=== PATIENT | female | born 1990 | race Caucasian/White ===

== ENCOUNTER 2017-08-04 16:13 | Emergency (ER) | payer OTHER, SELFPAY ==
[2017-08-04 16:40] LABS: BHCG - Serum POSITIVE (NEGATIVE); Pregs Control Background? CLEAR/WHITE (CLR/WHITE); Pregs Control Bar Appear? YES (CONTROL BAR)
[2017-08-04 16:52] LABS: Bilirubin Negative (Negative); Blood, Urine Negative (Negative); Clarity CLEAR (Clear); Glucose, Urine (Dipstick) Negative (Negative); Leukocyte Negative (Negative); Nitrite Negative (Negative); Protein, Urine (Dipstick) Negative (Neg-Trace); Specific Gravity, Urine 1.012 (1.002-1.036); pH, Urine 6.5 (5.0-9.0)
[2017-08-04 16:54] LABS: Pregnancy Test - Urine (BHCG) POSITIVE (Negative); Pregu Control Background? CLEAR/WHITE (CLR/WHITE); Pregu Control Bar Appear? YES (CONTROL BAR); Specific Gravity 1.012 (1.002-1.036)
[2017-08-04] MEDS ORDERED: Acetaminophen 500 MG TAB ONE (17:43)
[2017-08-04 18:10] LABS: #Eosinphils 0.1 thou/uL (0.0-0.7); #Lymphocytes 2.6 thou/uL (1.20-3.40); #Monocytes 0.6 thou/uL (0.11-0.59); #Neutrophils 4.6 thou/uL (1.40-6.50); %Basophils 0.4 % (0.0-1.0); %Eosinophils 1.6 % (0.0-10.0); %Monocytes 7.9 % (0.0-10.0); %Neutrophils 58.2 % (42.0-75.0); Hemoglobin 14.5 g/dL (12.0-16.0); Mean Corpuscular HGB CONC 34.5 g/dL (32.0-36.0); Mean Corpuscular Hemoglobin 33.2 pg (27.0-31.0); Mean Corpuscular Volume 96.1 fl (81.0-99.0); Mean Platelet Volume 8.7 fL (7.4-10.4); Platelet Count 224 thou/uL (130-400); RBC Distribution Width 11.5 % (11.5-14.5); Red Blood Cell (RBC) Count 4.37 mill/uL (4.20-5.40)
--- NOTE | 2017-08-04 18:21 | CT ---
HEAD CT NONCONTRAST: INDICATIONS: Headache. COMPARISON: No prior comparison. FINDINGS: There is no evidence of ventriculomegaly, mass effect, midline shift, or acute intracranial hemorrhag e. The imaged paranasal sinuses are clear. IMPRESSION: No acute intracranial abnormalities. POS: [facility]
[2017-08-04 18:23] LABS: ALT (SGPT) 14 U/L (8-55); AST (SGOT) 12 U/L (5-34); Albumin 3.9 g/dL (3.5-5.0); Alkaline Phosphatase 49 U/L (40-150); Anion Gap 10 mmol/L (10-20); BUN (Urea Nitrogen) 6 mg/dL (7.0-18.7); Bilirubin, Total 0.4 mg/dL (0.2-1.2); Calc. Creatinine Clearance 0 mL/min (70-130); Calcium 8.7 mg/dL (7.8-10.44); Carbon Dioxide 24 mmol/L (22-29); Chloride 109 mmol/L (98-107); Estimated GFR-MDRD Greater than 90; Globulin 2.1 g/dL (2.4-3.5); Glucose 90 mg/dL (70-105); Potassium 3.5 mmol/L (3.5-5.1); Sodium 139 mmol/L (136-145)
--- NOTE | 2017-08-04 19:43 | ULT ---
TRANSVAGINAL AND TRANSABDOMINAL PELVIC ULTRASOUND WITH HARRISON SCALE AND DOPPLER COLOR FLOW IMAGING: INDICATIONS: Pelvic pain. FINDINGS: The left ovary is not visualized for comment. There is no evidence of an intrauterine gestation. Th e right ovary reveals flow by Doppler assessment. Small physiologic appearing follicles are seen at the right ovary. No significant free pelvic fluid. The endometrium is prominent at 1.1 cm. IMPRESSION: 1. No evidence of intrauterine gestation. Therefore, the possibility of an ectopic is not excluded on the basis of this exam. Subsequently, followup with serial beta hCG values as well as [facility] [place] should be obtained for continued assessment. 2. Nonvisualization of left ovary, precluding its assessment. POS: [facility]
== END 2017-08-04 20:16 | disposition home or self-care (01) ==
LOC: ERS 16:13
DX: O99.89 Other specified diseases and conditions complicating pregnancy, childbirth and the puerperium (principal); R51 Headache; R55 Syncope and collapse; R10.2 Pelvic and perineal pain; O99.341 Other mental disorders complicating pregnancy, first trimester; F41.9 Anxiety disorder, unspecified; F31.9 Bipolar disorder, unspecified; Z87.891 Personal history of nicotine dependence; Z3A.01 Less than 8 weeks gestation of pregnancy
CPT/HCPCS: 36415; 70450; 76856; 80053; 81003; 81025; 84702; 84703; 85025; 86900; 86901; 93005; 96360

== ENCOUNTER 2018-02-08 18:58 | Day surgery (SDC) | payer OTHER ==
[2018-02-08 19:29] VITALS: BP 132/70; TEMP 98.3; BMI 29.8
[2018-02-08 20:20] LABS: Bilirubin Negative (Negative); Blood, Urine Negative (Negative); Clarity CLEAR (Clear); Glucose, Urine (Dipstick) Negative (Negative); Leukocyte Trace (Negative); Nitrite Negative (Negative); Protein, Urine (Dipstick) Negative (Neg-Trace); Specific Gravity, Urine 1.015 (1.002-1.036); Urobilinogen 0.2 mg/dL (0.2-1.0)
[2018-02-08 20:23] LABS: Bacteria/HPF None Seen HPF (None Seen); Hyaline Casts/LPF 0-3 HYALINE CAST LPF (0-3 Hyaline); Pathc Cast-AUWi Flag 0.29 (0-2.49); RBC/HPF 0-3 HPF (0-3); Squamous Epithelial 0-3 HPF (0-3)
--- NOTE | 2018-02-09 09:52 | PRG ---
DATE OF SERVICE: 02/08/2018 OB ER ENCOUNTER PRIMARY OB: Dr. Fausto Long. CHIEF COMPLAINT: Cramping. HISTORY OF PRESENT ILLNESS: The patient is a 27-year-old, G3, P2 female with an intrauterine at 31 weeks and 2 days, who presents to Labor and Delivery after experiencing some cramping and lower back pain. The patient reports that the discomfort is mild in nature, but gave her concern given her gestational age of 31 weeks. The patient denies any recent intercourse. She does report that she has been having more discharge than normal. She denies any fever, headache, chest pain, shortness of breath, nausea, vomiting, diarrhea, constipation. She denies any new rashes, hip problems, knee problems, muscle weakness. Denies vaginal bleeding. Denies urinary urgency or frequency. PAST MEDICAL HISTORY: Negative. PAST SURGICAL HISTORY: Noncontributory. ALLERGIES: NO KNOWN DRUG ALLERGIES. MEDICATIONS: vitamins. LABORATORY DATA: OB labs are unavailable at the time of dictation. SOCIAL HISTORY: Denies drug, alcohol, tobacco use. REVIEW OF SYSTEMS: Per HPI. PHYSICAL EXAMINATION: VITAL SIGNS: Blood pressure 114/61, heart rate of 107, respiratory rate of 16, temperature 98.3. GENERAL: She appears to be in no acute distress. She is alert and oriented, cooperative, pleasant to interact with. HEAD: Normocephalic, atraumatic. LUNGS: Clear to auscultation bilaterally. HEART: Regular rate and rhythm. ABDOMEN: Soft and gravid. She has no CVA tenderness. No paravertebral tenderness or vertebral tenderness. EXTREMITIES: Nontender, nonedematous. : Per nursing staff, cervix is closed and thick. heart tracing baseline is noted to be in the 140s with moderate long-term variability, positive accelerations. No decelerations. Tocometer does not show any contractions. VPIII was sent for evaluation and noted to be positive for bacterial vaginosis, negative for Trichomonas or yeast. ASSESSMENT AND PLAN: The patient is a 27-year-old, G3, P2 female with an intrauterine at 31 weeks, having increased discharge and some crampiness, but no evidence of labor and reassuring and reactive baby. The patient has bacterial vaginosis, for which we will treat with metronidazole 500 mg to be taken twice a day for the next week and the patient has been discharged to home with instructions to follow up with her primary OB as scheduled. Job ID: [id number]
== END 2018-02-08 20:20 | disposition home or self-care (01) ==
LOC: L&D/OP 18:58
PROVIDERS: ATTEND Obstetrics & Gynecology
DX: O99.89 Other specified diseases and conditions complicating pregnancy, childbirth and the puerperium (principal); R10.9 Unspecified abdominal pain; M54.5 Low back pain; N89.8 Other specified noninflammatory disorders of vagina; O23.593 Infection of other part of genital tract in pregnancy, third trimester; B96.89 Other specified bacterial agents as the cause of diseases classified elsewhere; Z3A.31 31 weeks gestation of pregnancy; Z79.899 Other long term (current) drug therapy
CPT/HCPCS: 81001; 87480; 87510; 87660; 99284

== ENCOUNTER 2018-03-04 18:40 | Day surgery (SDC) | payer OTHER ==
[2018-03-04 19:18] VITALS: BP 122/72; TEMP 99; BMI 31.7
[2018-03-04] MEDS ORDERED: Lactated Ringer's 1,000 ML IV SCH ×2 (20:00)
[2018-03-04 20:34] LABS: #Basophils 0.1 thou/uL (0.0-0.2); #Eosinphils 0.2 thou/uL (0.0-0.7); #Lymphocytes 2.2 thou/uL (1.20-3.40); #Neutrophils 6.8 thou/uL (1.40-6.50); %Basophils 0.6 % (0.0-1.0); %Eosinophils 1.5 % (0.0-10.0); %Lymphocytes 21.9 % (21.0-51.0); %Monocytes 9.5 % (0.0-10.0); %Neutrophils 66.5 % (42.0-75.0); Hemoglobin 12.6 g/dL (12.0-16.0); Mean Corpuscular Hemoglobin 32.8 pg (27.0-31.0); Mean Corpuscular Volume 90.9 fL (78.0-98.0); Platelet Count 225 thou/uL (130-400); RBC Distribution Width 11.5 % (11.5-14.5); Red Blood Cell (RBC) Count 3.83 mill/uL (4.20-5.40); White Blood Cell (WBC) Count 10.1 thou/uL (4.8-10.8)
[2018-03-04 20:46] LABS: ALT (SGPT) 9 U/L (8-55); AST (SGOT) 9 U/L (5-34); Albumin 3.3 g/dL (3.5-5.0); Alkaline Phosphatase 89 U/L (40-150); Anion Gap 11 mmol/L (10-20); BUN (Urea Nitrogen) 6 mg/dL (7.0-18.7); Bilirubin, Total 0.2 mg/dL (0.2-1.2); Calc. Creatinine Clearance 241 mL/min (70-130); Calcium 8.8 mg/dL (7.8-10.44); Carbon Dioxide 21 mmol/L (22-29); Chloride 109 mmol/L (98-107); Estimated GFR-MDRD Greater than 90; Globulin 2.5 g/dL (2.4-3.5); Glucose 80 mg/dL (70-105); Potassium 3.6 mmol/L (3.5-5.1); Protein, Total 5.8 g/dL (6.0-8.3); Sodium 137 mmol/L (136-145)
--- NOTE | 2018-03-05 03:14 | SS ---
DATE OF ADMISSION: 03/04/2018 DATE OF DISCHARGE: 03/04/2018 LABOR AND DELIVERY TRIAGE NOTE REGULAR PHYSICIAN: Fausto Long MD EVALUATING PHYSICIAN: Teofilo Cornejo MD CHIEF COMPLAINT: Decreased movement, feeling dizzy at home. HISTORY OF PRESENT ILLNESS: Ms. Machado is a 27-year-old white G3, P2-0-0-2 with an estimated date of confinement of 04/11/2018, who presents complaining of decreased movement since earlier today along with a feeling of dizziness and intermittent sweating at home. Her care has been with Dr. Long and has been complicated by history of gestational diabetes for which she states she takes metformin. She denies ruptured membranes or vaginal bleeding. PAST OBSTETRICAL HISTORY: One vaginal delivery and one section for which she reports is a 10-pound baby. She states she is scheduled for another C- section for this . PAST MEDICAL HISTORY: None. PAST SURGICAL HISTORY: as above. CURRENT MEDICATIONS: 1. vitamins. 2. Metformin. ALLERGIES: NO KNOWN ALLERGIES. SOCIAL HISTORY: Denies tobacco or alcohol use. She denies illicit drug use. FAMILY HISTORY: Unremarkable. REVIEW OF SYSTEMS: Positive for decreased movement and dizziness. Denies nausea, vomiting, fever, chills, ruptured membranes, or vaginal bleeding. PHYSICAL EXAMINATION: VITAL SIGNS: Blood pressure 127/67, pulse 78, she is afebrile. GENERAL: She is in no acute distress and appears well. ABDOMEN: Soft, nontender, and gravid. PELVIC: Deferred. LABORATORY DATA: White count 10.1, hemoglobin and hematocrit 12.6 and 34.8 respectively, platelet count 225,000. Chemistry; sodium 137, potassium 3.6, BUN of 6, creatinine 0.53, glucose is 80, total bilirubin 0.2, AST 9, ALT 9. Initially, her heart rate tracing showed decreased variability. IV fluids were started and she was bolused and hydrated. Her heart rate tracing immediately improved with spontaneous accelerations and active movement. No decelerations were seen. ASSESSMENT: 1. 34-4/7th-week intrauterine . 2. Reassuring heart tracing. 3. Normal laboratories today in triage. PLAN: The patient was reassured. The patient is strongly wishing to go home. She was given complete precautions and told to return here should her symptoms recur. Job ID: [id number] [facility]
== END 2018-03-04 21:55 | disposition home or self-care (01) ==
LOC: L&D/OP 18:40
PROVIDERS: ATTEND Obstetrics & Gynecology
DX: O36.8130 Decreased fetal movements, third trimester, not applicable or unspecified (principal); O99.89 Other specified diseases and conditions complicating pregnancy, childbirth and the puerperium; R42 Dizziness and giddiness; Z3A.34 34 weeks gestation of pregnancy
CPT/HCPCS: 80053; 85025; 96360; 96361; 99282

== ENCOUNTER 2018-04-07 10:20 | Inpatient (IN) | payer OTHER ==
[2018-04-07 10:45] VITALS: BMI 32.9
[2018-04-07] MEDS ORDERED: Ondansetron PF 4 MG/2 ML Vial IVP PRN ×4 (11:04→16:29)
[2018-04-07] MEDS ORDERED: Promethazine HCl 25 MG/ML VIAL IM PRN ×4 (11:04→16:29)
[2018-04-07] MEDS ORDERED: Morphine PF 1 MG/ML SYR ONE (11:12)
[2018-04-07] MEDS ORDERED: Fentanyl 100 MCG/2 ML VIAL ONE (11:12)
[2018-04-07] MEDS ORDERED: PHENYLEPHRINE-NS 100 MCG/ML 10 ML SYRINGE ONE ×2 (11:13→16:07)
[2018-04-07] MEDS ORDERED: Oxytocin 10 UNITS/ML VIAL ONE ×2 (11:13→13:42)
[2018-04-07] MEDS ORDERED: Dexamethasone 4 mg/ml Vial ONE (11:13)
[2018-04-07] MEDS ORDERED: Ketorolac Tromethamine 30 MG/ML VIAL ONE ×2 (11:13→16:07)
[2018-04-07] MEDS ORDERED: Ondansetron PF 4 MG/2 ML Vial ONE ×2 (11:13→16:07)
[2018-04-07] MEDS ORDERED: CEFAZOLIN/Water 2 GM/20 ML SYRINGE SLOW IVP SCH (11:15)
[2018-04-07] MEDS ORDERED: Bicitra 30 ML UDCUP PO SCH ×2 (11:15→12:30)
[2018-04-07] MEDS ORDERED: Lactated Ringer's 1,000 ML IV SCH (11:15)
[2018-04-07 11:20] LABS: Hemoglobin 12.7 g/dL (12.0-16.0); Mean Corpuscular HGB CONC 34.8 g/dL (32.0-36.0); Mean Corpuscular Hemoglobin 31.1 pg (27.0-31.0); Mean Corpuscular Volume 89.5 fL (78.0-98.0); Mean Platelet Volume 8.5 fL (7.4-10.4); Platelet Count 226 thou/uL (130-400); RBC Distribution Width 11.9 % (11.5-14.5); Red Blood Cell (RBC) Count 4.09 mill/uL (4.20-5.40); White Blood Cell (WBC) Count 8.9 thou/uL (4.8-10.8)
[2018-04-07] MEDS ORDERED: CEFAZOLIN 2 GM/50 ML BAG ONE ×2 (11:56→11:57)
[2018-04-07 12:05] LABS: Syphilis Antibody Nonreactive (Nonreactive); Syphilis Antibody Index 0.02 S/CO (<1.00 Non-Reactive)
[2018-04-07] MEDS ORDERED: Lidocaine 2% PF Inj 2 ML VIAL ONE (12:12)
[2018-04-07] MEDS ORDERED: Metoclopramide HCl 10 MG/2 ML VIAL ONE ×2 (12:53→16:07)
[2018-04-07] MEDS ORDERED: EPINEPHrine 1 MG/10 ML Abboject SYRINGE ONE (12:53)
[2018-04-07] MEDS ORDERED: L&D-Morphine 4 MG/ML VIAL SLOW IVP PRN (13:14)
[2018-04-07] MEDS ORDERED: diphenhydrAMINE 50 MG/ML VIAL IVP PRN (13:14)
[2018-04-07] MEDS ORDERED: HYDROmorphone 2 MG/ML VIAL SLOW IVP PRN (13:14)
[2018-04-07] MEDS ORDERED: Ondansetron HCl/PF 4 MG/2 ML Vial IVP PRN (13:14)
[2018-04-07] MEDS ORDERED: Naloxone HCl 0.4 mg/ml Vial IV PRN (13:14)
[2018-04-07] MEDS ORDERED: Promethazine HCl 25 MG SUPP PR PRN (13:14)
[2018-04-07] MEDS ORDERED: Eucerin (Mineral Oil/Petrolatum,White) 30 gm Jar TOP PRN (13:14)
[2018-04-07] MEDS ORDERED: Naloxone HCl 0.4 mg/ml Vial IVP PRN ×2 (13:14)
[2018-04-07] MEDS ORDERED: Ketorolac Tromethamine 30 MG/ML VIAL IVP SCH ×2 (13:15→14:00)
[2018-04-07] MEDS ORDERED: Communication Order-Pharmacy FS SCH (13:15)
[2018-04-07] MEDS ORDERED: Meperidine HCl/PF 25 MG/ML VIAL ONE ×2 (14:32→15:43)
[2018-04-07] MEDS: Meperidine HCl/PF 25 MG/ML VIAL SLOW IVP PRN ×2 (15:08→15:43)
[2018-04-07 15:36] LABS: HBSAg Index 0.21 S/CO (0-0.99); Hep B Surf Ag Non-Reactive S/CO (NonReactive)
[2018-04-07] MEDS ORDERED: ePHEDrine/0.9% NaCl/PF SYRINGE 50 mg/10 ml ONE (16:07)
[2018-04-07] MEDS ORDERED: Dexamethasone 20 MG/5 ML VIAL ONE (16:07)
[2018-04-07] MEDS ORDERED: Lanolin Ointment 7 GM TUBE TOP PRN (16:29)
[2018-04-07] MEDS ORDERED: NS / Oxytocin 40 units/1000ml 1,000 ML IV SCH (16:29)
[2018-04-07] MEDS ORDERED: Bisacodyl 10 MG SUPP PR PRN (16:29)
[2018-04-07 16:54] LABS: HIV (1/2) Antibody/Antigen Non-Reactive (NonReactive); HIV 1/2 INDEX 0.11 S/CO (<1.00); Hep C IgG Ab Non-Reactive (NonReactive); Hep C Index 0.07 S/CO (0-0.79)
[2018-04-07] MEDS: Ketorolac Tromethamine 30 MG/ML VIAL IVP SCH (17:45)
[2018-04-07] MEDS: Morphine 4 MG/ML VIAL SLOW IVP PRN (20:43)
[2018-04-07] MEDS: Docusate Calcium (SURFAK) 240 MG CAP PO SCH (21:00)
[2018-04-07] MEDS: Ibuprofen 800 MG TAB PO SCH (22:00)
[2018-04-08] MEDS: Ketorolac Tromethamine 30 MG/ML VIAL IVP SCH ×3 (00:05→12:01)
[2018-04-08] MEDS ORDERED: HYDROcodone/Acetaminophen 5/325 mg Tablet PO PRN (01:15)
[2018-04-08] MEDS: Morphine 4 MG/ML VIAL SLOW IVP PRN (06:19)
[2018-04-08 07:07] LABS: Mean Platelet Volume 7.9 fL (7.4-10.4)
[2018-04-08 07:08] LABS: Hemoglobin 10.2 g/dL (12.0-16.0); Mean Corpuscular HGB CONC 33.4 g/dL (32.0-36.0); Mean Corpuscular Hemoglobin 30.2 pg (27.0-31.0); Mean Corpuscular Volume 90.4 fL (78.0-98.0); Platelet Count 160 thou/uL (130-400); RBC Distribution Width 11.9 % (11.5-14.5); Red Blood Cell (RBC) Count 3.38 mill/uL (4.20-5.40); White Blood Cell (WBC) Count 9.4 thou/uL (4.8-10.8)
[2018-04-08] MEDS ORDERED: Varicella virus, LIVE 0.5 ML VIAL SC ONE (09:00)
[2018-04-08] MEDS ORDERED: Adacel (T-DAP) 0.5 ML SYRINGE IM ONE (09:00)
[2018-04-08] MEDS ORDERED: Measles/Mumps/Rubella 10 MCG/0.5 ML VIAL SC ONE (09:00)
[2018-04-08] MEDS: Docusate Calcium (SURFAK) 240 MG CAP PO SCH ×2 (09:40→22:37)
[2018-04-08] MEDS: Prenatal Vitamin 1 TAB PO SCH (09:40)
[2018-04-08] MEDS: Ibuprofen 800 MG TAB PO SCH ×3 (09:41→22:37)
[2018-04-08] MEDS: HYDROcodone/Acetaminophen 5/325 mg Tablet PO PRN ×3 (09:42→20:19)
--- NOTE | 2018-04-08 19:39 | PDOC.PP ---
Post Progress Note Post Day #: 1 PO intake tolerated: yes Flatus: yes Ambulation: yes Vital Signs (12 hours) Temp Pulse Resp BP Pulse Ox 04/08/18 17:20 98.5 F 97 18 116/56 L 97 04/08/18 11:38 98.4 F 95 20 115/60 04/08/18 08:16 98.1 F 107 H 20 124/67 97 Weight Weight 223 lb - Physical Examination Cardiovascular: no m/r/g, RRR Respiratory: clear to auscultation bilaterally, non-labored breathing Abdominal: + bowel sounds, lochia Extremities: negative homans (B) Skin: CS incision dry & intact, no rash Neurological: no gross focal deficits Psychiatric: A&Ox3, normal affect Result Diagrams: 04/08/18 06:14 Additional Labs: Post Labs Blood Type A POSITIVE 04/07/18 10:58 Hep Bs Antigen Non-Reactive S/CO (NonReactive) 04/07/18 10:58 Rubella IgG Antibody 2.67 index (Immune >0.99) 04/07/18 10:58 - Assessment/Plan Ms. 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 Confirmation testing will likely be done to follow as per Nursery team who has ordered such testing without involving me or discussing this matter with me. Unfortunately, the patient appears quite upset, and she and her family believe the test to be falsely positive, and likely due to recent cold/flu OTC preparations that she has taken. To my knowledge, the patient has not admitted to any prior drug use that I am aware of. She has done well keeping all clinic appointments and has appeared to be very relaxed, appropriate in her questions and care of her , and shown appropriate behavior. Some discrepancy exists with completion of blood work that the patient received orders for and no results can be found - although she has told me she did complete the most recently requested testing at [facility] in [facility].
[2018-04-09] MEDS: HYDROcodone/Acetaminophen 5/325 mg Tablet PO PRN ×6 (00:43→23:30)
[2018-04-09] MEDS: Simethicone Chewable 80 MG TAB PO PRN (00:44)
[2018-04-09] MEDS: Ketorolac Tromethamine 30 MG/ML VIAL IVP SCH ×4 (05:21→17:58)
[2018-04-09] MEDS: Ibuprofen 800 MG TAB PO SCH ×3 (05:23→21:17)
[2018-04-09] MEDS: Docusate Calcium (SURFAK) 240 MG CAP PO SCH ×2 (09:20→21:18)
[2018-04-09] MEDS: Prenatal Vitamin 1 TAB PO SCH (09:20)
[2018-04-10] MEDS: Ketorolac Tromethamine 30 MG/ML VIAL IVP SCH ×3 (01:23→13:05)
[2018-04-10] MEDS: HYDROcodone/Acetaminophen 5/325 mg Tablet PO PRN ×3 (03:31→13:16)
[2018-04-10] MEDS: Ibuprofen 800 MG TAB PO SCH ×2 (05:27→13:57)
[2018-04-10] MEDS: Prenatal Vitamin 1 TAB PO SCH (08:17)
[2018-04-10] MEDS: Docusate Calcium (SURFAK) 240 MG CAP PO SCH (08:17)
[2018-04-10 08:19] VITALS: BP 120/66; TEMP 98.5
[2018-04-10] MEDS: Simethicone Chewable 80 MG TAB PO PRN (13:16)
--- NOTE | 2018-04-10 13:41 | PDOC.PP ---
Post Progress Note Post Day #: 3 PO intake tolerated: yes Flatus: yes Ambulation: yes Vital Signs (12 hours) Temp Pulse Resp BP Pulse Ox 04/10/18 08:18 98.5 F 72 20 120/66 97 Weight Weight 223 lb - Physical Examination General: NAD Cardiovascular: no m/r/g, RRR Respiratory: clear to auscultation bilaterally Abdominal: + bowel sounds, lochia Extremities: negative homans (B) Skin: CS incision dry & intact, no rash Neurological: no gross focal deficits Psychiatric: A&Ox3, normal affect Result Diagrams: 04/08/18 06:14 Additional Labs: Post Labs Blood Type A POSITIVE 04/07/18 10:58 Hep Bs Antigen Non-Reactive S/CO (NonReactive) 04/07/18 10:58 Rubella IgG Antibody 2.67 index (Immune >0.99) 04/07/18 10:58 - Assessment/Plan DC to home today. F/U in clinic in 2 weeks.
--- NOTE | 2018-04-10 13:42 | PDOC.PP ---
Post Progress Note Post Day #: 2 PO intake tolerated: yes Flatus: yes Ambulation: yes Vital Signs (12 hours) Temp Pulse Resp BP Pulse Ox 04/10/18 08:18 98.5 F 72 20 120/66 97 Weight Weight 223 lb - Physical Examination General: NAD Cardiovascular: no m/r/g, RRR Respiratory: clear to auscultation bilaterally Abdominal: + bowel sounds, lochia Extremities: negative homans (B) Skin: CS incision dry & intact, no rash Neurological: no gross focal deficits Psychiatric: A&Ox3, normal affect Result Diagrams: 04/08/18 06:14 Additional Labs: Post Labs Blood Type A POSITIVE 04/07/18 10:58 Hep Bs Antigen Non-Reactive S/CO (NonReactive) 04/07/18 10:58 Rubella IgG Antibody 2.67 index (Immune >0.99) 04/07/18 10:58
--- NOTE | 2018-04-10 17:16 | OP ---
DATE OF PROCEDURE: 04/07/2018 PREOPERATIVE DIAGNOSIS: Intrauterine at 39 weeks and 2 days with a history of previous section, who declines vaginal after and desires repeat low transverse section. POSTOPERATIVE DIAGNOSIS: Intrauterine at 39 weeks and 2 days with a history of previous section, who declines vaginal after and desires repeat low transverse section. PROCEDURE PERFORMED: Repeat low transverse section. FINDINGS: Viable female weighing 3824 g or 8 pounds 7 ounces, Apgars 8 and 9. QUANTITATIVE BLOOD LOSS: 520 mL. COMPLICATIONS: None. DETAILS OF THE PROCEDURE: The patient was consented and taken back to the operating room where spinal anesthesia was found to be adequate. She was then prepped and draped in the normal sterile fashion. A timeout was performed by the entire operative team. The incision was then marked with a marking pen tested using sharp pickups. An incision was then made with a scalpel. The incision was carried through the adipose tissue down to the underlying rectus fascia using both sharp dissection as well as cautery. Once the fascia was identified, it was incised in the midline and then the fascial incision was carried through in both lateral directions using sharp as well as cautery dissection techniques. Next, the superior aspect of the rectus fascia was grasped with 2 Gena clamps, which was tented up and the rectus muscles were dissected off using blunt dissection as well as cautery dissection. Similarly, the inferior aspect of the fascial incision was grasped with 2 Gena clamps, tented up and the rectus muscles were dissected off bluntly as well as sharply. Next, the rectus muscles were in the midline and the peritoneum identified. The peritoneum was then carefully grasped with 2 hemostats and entered sharply. The peritoneal incision was extended superiorly and inferiorly and bladder blade was placed in the lower abdomen. At this point, the uterus was identified and the bladder flap was then developed using pickups with teeth as well as Metzenbaum scissors in both lateral directions. The bladder flap was then dissected downwards using the scrubbing machine operator's finger as well as Metzenbaum scissors. The bladder blade was replaced. The lower uterine segment was then identified and entered sharply using a clean scalpel. The uterine incision was then dissected downwards until thin layer of muscle remained and this was entered bluntly using a hemostat to avoid any injury to the baby. The uterine incision was then stretched using two fingers in both lateral directions. An amniotomy was performed artificially using a hemostat and the baby was delivered using fundal pressure in a gentle fashion. Once out, the baby's mouth and nose were bulb suctioned, cord clamped and cut, and the baby was handed to waiting attendants. Next, the uterus was exteriorized, cleared of all clots and debris and the uterine incision was repaired with #1 Monocryl in a running locking fashion. A 2nd suture of the same type was used to obtain complete hemostasis at the uterine incision. The bladder flap was reapproximated using 3-0 Monocryl. Next, patient's left and right adnexa were inspected and appeared to be within normal limits. The posterior cul-de-sac was blotted dry and hemostasis assured. One more look at the uterine incision demonstrated hemostasis. Next, the uterus was replaced back within the abdomen. The peritoneum was reapproximated using 2-0 Monocryl without difficulty. The rectus muscles were then allowed to come back together and 0 chromic was used to aid in reapproximation of the muscle as necessary. The rectus fascia was then reapproximated in a running fashion using 0 Vicryl suture. The adipose tissue was then examined and appeared to be well approximated without any obvious separations. Finally, the skin was reapproximated with 3-0 Monocryl on a Lyle needle without difficulty and Dermabond adhesive was applied to the skin. Once the glue was dry, the drapes were removed and the patient was transferred to an ambulatory bed where she was taken to recovery awake and in stable condition. Sponge, lap, and needle counts were correct x3. Job ID: [id number]
== END 2018-04-10 15:50 | disposition home or self-care (01) | DRG 788 ==
LOC: L&D 10:20 → 3SW 17:13
PROVIDERS: ADMIT Obstetrics & Gynecology; ATTEND Obstetrics & Gynecology
PROC: 10D00Z1 Extraction of Products of Conception, Low, Open Approach (ICD-10-PCS; principal; 2018-04-07)
DX: O34.211 Maternal care for low transverse scar from previous cesarean delivery (principal); Z3A.39 39 weeks gestation of pregnancy; Z37.0 Single live birth; O99.344 Other mental disorders complicating childbirth; F31.9 Bipolar disorder, unspecified
CPT/HCPCS: 36415; 51702; 85027; 86762; 86780; 86803; 86850; 86900; 86901; 87340; 87389; J0171; J1100; J1885; J2001; J2175; J2270; J2274; J2405; J2590; J2765; J3010